=== PATIENT | female | born 1985 | race Caucasian/White ===

== ENCOUNTER 2023-05-22 08:56 | Emergency (ER) | payer OTHER, SELFPAY ==
[2023-05-22 09:01] VITALS: BP 122/57
--- NOTE | 2023-05-22 09:35 | ED.GENMED ---
History of Present Illness
General
Chief Complaint: Musculo-Skeletal Complaint
Source: patient
Exam Limitations: none
Time Seen by Provider: 05/22/23 09:15
Nursing documentation reviewed up to this point in time: agreed with
Travel History
Have you had any contact with someone who has COVID-19?: No
Do you have any symptoms of coronavirus? Fever > 100 degrees, chills, cough, shortness of breath, sore throat, loss of taste or smell, muscle aches, or headache?: No
History of Present Illness
History of Present Illness:
37 y/o F with h/o MS on an injection for MS montly
here with left achilles pain where it inserts
no trauma, no change in foot wear, no fever, chills
she did nnotice a bruise in this area 2 weeks ago but never had pain
she has not had any issues walking until this morning
no calf pain tenderness, swelling, fever, chills
this does not feel similar to previous MS flare
she feels her MS is very well controlled
works [facility] [employer] and said she had to leave work
Past History
Past History
ED Past Medical History: Psychiatric (Depression) and Other (Multiple sclerosis, frequent headaches)
ED Past Surgical History: Other (Root canal)
Social History
Personal:
Living: with family
Employment: Retired
Review of Systems
Review of Systems
Allergies reviewed?: Yes
All Other Systems: Not applicable
Phy Exam
Physical Exam
Physical Exam:
GENERAL: Alert , in no apparent distress, comfortable at rest
HEAD: NCAT
CV: 2+ DP PULSES B/L
NEUROLOGICAL: Alert and oriented, no focal neuro deficits, , 5/5 strength, sensation intact, ambulation slight limp right leg
SKIN: Warm and dry,
MUSCULOSKELETAL:
Normal inspection of the foot, he she does have slight hyperpigmentation along the distal aspect of the Achilles posterior heel region which is not red or warm but could represent a bruise perhaps
, She does have tenderness at the insertion of the Achilles tendon, approximately no tenderness in her calf is normal inspection and not swollen. She has a negative Homans' sign and a normal Rubio test, no bony foot pain no bony ankle pain
PSYCH: Normal and appropriate interaction.
Course
Orders/Labs/Results
Orders:
Orders
05/22/23 09:08
Ankle, left 3 view CR [CR Ankle - Left Min 3 Views ] Urgent
Comment:
Reason For Exam: pain without injury
Vital Signs
Initial and Last Documented VS:
Initial Vital Signs
Temp Pulse Resp BP Pulse Ox
98.9 F 81 18 122/57 100
05/22/23 09:01 05/22/23 09:01 05/22/23 09:01 05/22/23 09:01 05/22/23 09:01
Last Documented Vital Signs
Temp Pulse Resp BP Pulse Ox
98.9 F 81 18 122/57 100
05/22/23 09:01 05/22/23 09:01 05/22/23 09:01 05/22/23 09:01 05/22/23 09:01
MDM/Problems Addressed
Differential Diagnosis Includes:
achilles tendinitis, ankle sprain
MDM/Problems Addressed:
37-year-old female with atraumatic ankle pain and swelling to the posterior ankle along with the insertion point of the Achilles tendon, there is no weakness or decreased range of motion. She has history of MS which is in remission. There is no
redness, fever, numbness tingling or weakness. She has pain with dorsi and plantarflexion, the Achilles is intact, she only has tenderness at the distal aspect of the Achilles, x-ray was independently reviewed by me and negative, I did discuss with
radiology whether he could appreciate any Achilles inflammation, he did not. However the patient does present like Achilles tendinitis. She was recommended I heel lift or a brace to wear and given a set of crutches, recommend NSAIDs for the next
several days and follow-up with Ortho as needed
*Critical Care Note
Total Time (30-74mins, 75-104mins- exclusive of procedures): Not Applicable
ED Attending Note
-
Portions of this chart may have been created with voice recognition software.� Occasional wrong word or��sound alike� substitutions may have occurred due to the inherent limitations of voice recognition software.
Discharge Plan
Departure
Patient Disposition: Home (Routine Discharge)
Date of Disposition: 05/22/23
Time of Disposition: 09:49
Patient with high blood pressure during this ER visit?: No
Covid-19: Not Applicable
Discharge Problem:
Achilles tendinitis
Instructions: Achilles Tendinopathy (DC), Achilles Tendinopathy Exercises
Prescriptions:
No Action
escitalopram oxalate 10 MG tablet
20 mg PO DAILY
trazodone 100 MG tablet
100 mg PO DAILY
Referrals:
John Knight MD [Active] - Follow up in 1 week (Orthopedics)
Stand Alone Forms: Return to Work
Activity Restrictions/Additional Instructions:
Your x-ray appears normal. You may have some slight inflammation of your Achilles tendon but on exam that is what it looks like, that you may have Achilles tendinitis which is an inflammation. You should take either Aleve or ibuprofen as directed
for 3 to 5 days with food to help with inflammation. Elevate, use the crutches to avoid putting full weight on your leg and you can look up and buy a Achilles tendon brace. You can also use a heel lift in your shoe like a sneaker.
After few days of using the crutches try to use the brace or heel lift without the crutches and see how you do. If you are still having pain you should follow-up with orthopedics. If you are having any redness or swelling that is worsening
especially extending in your calf, foot drop or numbness or tingling or weakness you should return to the ER
Interventions
Interventions:
*Nursing Disposition Last Done: 05/22/23 10:20
ED-Musculoskeletal Assessment Last Done: 05/22/23 09:30
Discharge Date and Time
Discharge Date/Time: 05/22/23 10:21
== END 2023-05-22 10:21 | disposition home or self-care (01) ==
LOC: EMR 08:56
PROVIDERS: EMERGENCY PHYSICIAN Emergency Medicine; FAMILY PHYSICIAN Student in an Organized Health Care Education/Training Program
DX: M76.62 Achilles tendinitis, left leg (principal)
CPT/HCPCS: 99283; 73610